=== PATIENT | female | born 1995 | race Two or more races ===

== ENCOUNTER 2019-12-12 00:04 | Emergency (ER) | payer SELFPAY ==
--- NOTE | 2019-12-12 00:51 | ER Document Report ---
ED Medical Screen (RME) - General Chief Complaint: Vaginal Bleeding Stated Complaint: VAGINAL BLEEDING Time Seen by Provider: 12/12/19 00:41 Mode of Arrival: Wheelchair Information source: Patient Notes: 24-year-old female patient presents the emergency department with complaints of vaginal bleeding. Patient reports that started approximately an hour prior to arrival. Patient reports she was having sexual intercourse with her spouse, she states all of a sudden she started having what she describes as a massive amount of bleeding. She also reports pain to the area. She reports she got in the shower to try to determine what was going on and did have a few clots around the area. She does not believe this is her menstrual cycle and she has never had heavy bleeding like this before although she is due for her menstrual cycle soon. Exam deferred until patient is in room. Patient was made an GUSTAVO to in case this is a significant vaginal laceration and I am unable to determine that in triage. I have greeted and performed a rapid initial assessment of this patient. A comprehensive ED assessment and evaluation of the patient, analysis of test results and completion of the medical decision making process will be conducted by additional ED providers. I have specifically instructed the patient or family members with the patient to immediately return to any nursing staff shoul d anything change in the patient's condition or with their chief complaint. - Related Data Allergies/Adverse Reactions: No Known Allergies Allergy (Unverified 12/12/19 00:48) Past Medical History - Social History Chew tobacco use (# tins/day): No Frequency of alcohol use: Occasional Drug Abuse: None Physical Exam - Vital signs Vitals: Temp Pulse Resp BP Pulse Ox 98.8 F 90 14 105/62 97 12/12/19 00:12/12/19 00:12/12/19 00:12/12/19 00:12/12/19 00:23 Course - Vital Signs Vital signs: Temp Pulse Resp BP Pulse Ox 98.8 F 90 14 105/62 97 12/12/19 00:45 12/12/19 00:12/12/19 00:23 12/12/19 00:12/12/19 00:23
[2019-12-12 01:58] LABS: ABSOLUTE EOSINOPHILS # (AUTO) 0.1 10^3/uL (0.0-0.6); ABSOLUTE LYMPHOCYTES (AUTO) 1.5 10^3/uL (0.5-4.7); ABSOLUTE MONOCYTES (AUTO) 0.7 10^3/uL (0.1-1.4); ABSOLUTE NEUT (AUTO) 9.2 10^3/uL (1.7-8.2); BASOPHILS % (AUTO) 0.4 % (0-2); EOSINOPHILS % (AUTO) 0.7 % (0-6); HEMATOCRIT 33.6 % (36.0-47.0); HEMOGLOBIN 11.3 g/dL (12.0-15.5); LYMPHOCYTES % (AUTO) 12.6 % (13-45); MEAN CORPUSCULAR HEMOGLOBIN 30.7 pg (27.0-33.4); MEAN CORPUSCULAR HGB CONC 33.7 g/dL (32.0-36.0); MEAN CORPUSCULAR VOLUME 91 fl (80-97); MONOCYTES % (AUTO) 6.3 % (3-13); PLATELET COUNT 178 10^3/uL (150-450); RED BLOOD COUNT 3.68 10^6/uL (3.72-5.28); RED CELL DISTRIBUTION WIDTH 12.6 % (11.5-14.0); TOTAL CELLS COUNTED % (AUTO) 100 %; WHITE BLOOD COUNT 11.5 10^3/uL (4.0-10.5)
[2019-12-12] MEDS ORDERED: NORMAL SALINE 1000 ML 1,000 ML IV ONE (02:06)
[2019-12-12 04:17] LABS: APPEARANCE,URINE SLIGHTLY-CLOUDY; BILIRUBIN,URINE NEGATIVE (NEGATIVE); COLOR,URINE YELLOW; GLUCOSE, URINE NEGATIVE (NEGATIVE); KETONES,URINE NEGATIVE (NEGATIVE); LEUKOCYTE ESTERASE,URINE NEGATIVE (NEGATIVE); NITRITE,URINE NEGATIVE (NEGATIVE); PROTEIN,URINE 30 mg/dL (NEGATIVE); URINE SPECIFIC GRAVITY 1.027; UROBILINOGEN,URINE NEGATIVE mg/dL (<2.0)
--- NOTE | 2019-12-12 04:44 | RADIOLOGY REPORT (SQ) ---
Ultrasound pelvis transvaginal on 12/12/2019 at 4:07 AM CLINICAL INDICATION: Vaginal bleeding, history of two months ago COMPARISON: None FINDINGS: Multiple sonographic images are obtained throughout the pelvis by transabdominal and transvaginal approach, both transverse and sagittal images are obtained. Uterus measures approximately 9.8 x 4.7 x 6.8 cm. Small amount of free fluid in the pelvis is likely physiologic. The endometrium is heterogeneous and thickened with significant increased vascularity within the endometrium. Endometrial stripe measures up to 2 cm. The right ovary measures approximately 3.5 x 1.9 x 2.2 cm. Flow is demonstrated in the right ovary. Left ovary measures approximately 3.8 x 1.9 x 2.1 cm. Flow is demonstrated in the left ovary. No adnexal mass or fluid collection is noted. IMPRESSION: Abnormal thickened hypervascular appearance of the endometrium. No definite retained products of conception are noted and this is of unknown definite etiology. Would recommend OB follow-up.
--- NOTE | 2019-12-12 04:45 | ER Document Report ---
Entered by ALLIE SOLORZANO SCRIBE 12/12/19 0206 Acting as scribe for:RINA MONTOYA IV, MD ED GI/ - General Chief Complaint: Vaginal Bleeding Stated Complaint: VAGINAL BLEEDING Time Seen by Provider: 12/12/19 00:41 Mode of Arrival: Wheelchair Information source: Patient Notes: This 24 year old female patient presents to the ED today with complaints of vaginal bleeding that started around 2300 last night. Patient states that while she was having intercourse with her significant other, she started having heavy vaginal bleeding. She reports that while she was in the shower, she noticed "thick" blood clots. She states that this is different from her normal menstrual periods. She states that she is unsure if she is and that she isn't on control. She reports that she had an on 10/16/2019. She also notes dizziness. She reports a family history of diabetes, but denies a personal history. She does admit that in the mornings, she experiences episodes of dizziness with visual disturbances that is usually resolved after drinking a cup of juice. - Related Data Allergies/Adverse Reactions: No Known Allergies Allergy (Unverified 12/12/19 00:48) Past Medical History - General Information source: Patient - Social History Smoking Status: Current Some Day Smoker Cigarette use (# per day): Yes Chew tobacco use (# tins/day): No Smoking Education Provided: No Frequency of alcohol use: Occasional Drug Abuse: None Lives with: Spouse/Significant other Family History: Reviewed & Not Pertinent, DM Patient has suicidal ideation: No Patient has homicidal ideation: No Review of Systems - Review of Systems Constitutional: No symptoms reported EENT: No symptoms reported Cardiovascular: See HPI, Dizziness Respiratory: No symptoms reported Gastrointestinal: No symptoms reported Genitourinary: No symptoms reported Female Genitourinary: See HPI, Vaginal bleeding Musculoskeletal: No symptoms reported Skin: No symptoms reported Hematologic/Lymphatic: No symptoms reported Neurological/Psychological: No symptoms reported -: Yes All other systems reviewed and negative Physical Exam - Vital signs Vitals: Temp Pulse Resp BP Pulse Ox 98.8 F 90 14 105/62 97 12/12/19 00:23 12/12/19 00:23 12/12/19 00:23 12/12/19 00:23 12/12/19 00:23 Interpretation: Normal - General General appearance: Alert In distress: None - HEENT Head: Normocephalic, Atraumatic Eyes: Normal Pupils: PERRL - Respiratory Respiratory status: No respiratory distress Chest status: Nontender Breath sounds: Normal Chest palpation: Normal - Cardiovascular Rhythm: Regular Heart sounds: Normal auscultation Murmur: No Friction rub: No Gallop: None auscultated - Abdominal Inspection: Normal Distension: No distension Bowel sounds: Normal Tenderness: Nontender - Abdomen soft Organomegaly: No organomegaly - Genitourinary External exam: Normal Speculum exam: No: Vaginal lacerations Vaginal bleeding: None - Scant amount of bleeding at vaginal vault that seems to be emanating from cervical os. There are no other areas of bleeding appreciated. 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 All questions were answered prior to discharge. Emergency signs and symptoms, reasons to return to the emergency department discussed with patient. - Vital Signs Vital signs: Temp Pulse Resp BP Pulse Ox 98.8 F 90 20 113/74 100 12/12/19 00:45 12/12/19 00:23 12/12/19 03:28 12/12/19 03:28 12/12/19 03:28 - Laboratory Result Diagrams: 12/12/19 04:34 Laboratory results interpreted by me: 12/12/19 12/12/19 12/12/19 01:38 03:30 04:34 WBC 11.5 H RBC 3.68 L 3.50 L Hgb 11.3 L 11.0 L Hct 33.6 L 32.1 L Lymph % (Auto) 12.6 L Absolute Neuts (auto) 9.2 H Seg Neutrophils % 80.0 H Urine Protein 30 H Urine Blood LARGE H - Diagnostic Test Radiology reviewed: Reports reviewed Discharge - Discharge Clinical Impression: Vaginal bleeding Condition: Good Disposition: HOME, SELF-CARE Additional Instructions: Return to the Emergency Department without delay if any worse. HOME CARE INSTRUCTIONS & INFORMATION: Thank you for choosing us for your medical needs. We hope you're satisfied with the care you received. After you leave, you must properly care for your problem and, at the same time, observe its progress. Any condition can change. Some illnesses can change rapidly over hours or days. If your condition worsens, return to the Emergency Department or see your physician promptly. ABOUT YOUR X-RAYS AND EKG'S: If you had an EKG or X-rays taken, they have been read by the Emergency Physician. The X-rays and EKG's will also be read by a Radiologist or Book Shelver within 24 hours. If discrepancies are noted, you will be notified by telephone. Please be certain the ED has a correct telephone number & address where you can be reached. Also, realize that some fractures or abnormalities do not show up on initial X-rays. If your symptoms continue, see your physician. ABOUT YOUR LABORATORY TEST: If you had laboratory tests, the results have been reviewed by the Emergency Physician. Some test results (for example cultures) may not be available for several days. You will be contacted if any test result shows you need additional treatment. Please be certain the ED has a correct telephone number and address where you can be reached. ABOUT YOUR MEDICATIONS: You will receive instructions on how to take your medicine on the prescription label you receive. Additional information may be provided by the Pharmacy. If you have questions afterwards, call the ED for clarification or further instructions. Some prescribed medications may cause drowsiness. Do not perform tasks such as driving a car or operating machinery without consulting your Pharmacist. If you feel you need a refill of pain medication, your condition will need re-evaluation. Please do not call for a refill of any medication. ABOUT YOUR SIGNATURE: Signature of this document acknowledges to followin. Understanding that you received emergency treatment and that you may be released before al medical problems are known or treated. Please be certain the ED has a correct phone number & address where you can be reached. 2. Acknowledgement that you will arrange for follow-up care as recommended. 3. Authorization for the Emergency Physician to provide information to your follow-up Physician in order to maximize your care. AT ANY TIME, IF YOUR SYMPTOMS CHANGE SIGNIFICANTLY OR WORSEN OR YOU DEVELOP NEW SYMPTOMS, RETURN TO THE EMERGENCY DEPARTMENT IMMEDIATELY FOR RE-EVALUATION. OUR GOAL IS TO PROVIDE EXCELLENT MEDICAL CARE! WE HOPE THAT WE HAVE MET YOUR EXPECTATIONS DURING YOUR EMERGENCY DEPARTMENT VIS IT AND THAT YOU FEEL YOU HAVE RECEIVED EXCELLENT CARE! Referrals: KIERRA WANG MD [HONORARY] - Follow up as needed I personally performed the services described in the documentation, reviewed and edited the documentation which was dictated to the scribe in my presence, and it accurately records my words and actions.
[2019-12-12 05:44] LABS: ABSOLUTE EOSINOPHILS # (AUTO) 0.1 10^3/uL (0.0-0.6); ABSOLUTE LYMPHOCYTES (AUTO) 1.7 10^3/uL (0.5-4.7); ABSOLUTE MONOCYTES (AUTO) 0.7 10^3/uL (0.1-1.4); ABSOLUTE NEUT (AUTO) 7.3 10^3/uL (1.7-8.2); BASOPHILS % (AUTO) 0.3 % (0-2); EOSINOPHILS % (AUTO) 0.8 % (0-6); HEMATOCRIT 32.1 % (36.0-47.0); LYMPHOCYTES % (AUTO) 17.3 % (13-45); MEAN CORPUSCULAR HEMOGLOBIN 31.4 pg (27.0-33.4); MEAN CORPUSCULAR HGB CONC 34.3 g/dL (32.0-36.0); MEAN CORPUSCULAR VOLUME 92 fl (80-97); MONOCYTES % (AUTO) 6.8 % (3-13); PLATELET COUNT 166 10^3/uL (150-450); RED CELL DISTRIBUTION WIDTH 12.6 % (11.5-14.0); SEGMENTED NEUTROPHILS % (AUTO) 74.8 % (42-78); TOTAL CELLS COUNTED % (AUTO) 100 %; WHITE BLOOD COUNT 9.8 10^3/uL (4.0-10.5)
[2019-12-12 06:27] VITALS: BP 113/69
== END 2019-12-12 06:25 | disposition home or self-care (01) ==
LOC: ER 00:04
DX: N93.9 Abnormal uterine and vaginal bleeding, unspecified (principal); R42 Dizziness and giddiness; H53.9 Unspecified visual disturbance; F17.200 Nicotine dependence, unspecified, uncomplicated; Z83.3 Family history of diabetes mellitus
CPT/HCPCS: 99284; 96360; 96361; 86900; 86901; 36415; 86850; 84703; 85025; 81001; 76830; J7030